=== PATIENT | male | born 1980 ===

== ENCOUNTER 2017-01-22 19:45 | Emergency (ER) | payer SELFPAY ==
[2017-01-22 19:58] VITALS: BP 136/87
--- NOTE | 2017-01-22 20:23 | UC ---
Skin Complaint HPI - HPI Summary HPI Summary: bee sting x 4 days ago on his both ankles , + pain , swelling, itchy skin , no sob , no cough , no wheezing + nausea and vomiting feeling much better for the past 2 days - History of Current Complaint Chief Complaint: UCLowerExtremity Time Seen by Provider: 01/22/17 19:50 Stated Complaint: BEE STING 3 DAYS AGO/ SWELLING Hx Obtained From: Patient Onset/Duration: Sudden Onset, Lasting Days - 4, Still Present Timing: Constant Onset Severity: Moderate Current Severity: Mild Location: Other - bilateral ankles Aggravating: Nothing Alleviating: Nothing Associated Signs & Symptoms: Positive: Nausea, Vomiting, Tenderness. Negative: Numbness, Thirst, Diaphoresis, Weakness, Pallor, Shivering, Fever, Chills, Cough , Wheezing, Syncope, Drainage - Allergy/Home Medications Allergies/Adverse Reactions: Allergies Allergy/AdvReac Type Severity Reaction Status Date / Time Bee Venom Allergy Hives Verified 01/22/17 19:59 Home Medications: Home Medications Cetirizine* [ZyrTEC 10 MG TAB*] 10 mg PO DAILY 01/22/17 [History Confirmed 01/22] Ibuprofen TAB* [Advil TAB*] 200 mg PO Q6H PRN 01/22/17 [History Confirmed ] diPHENhydraMINE PO* [Benadryl PO 25 MG TAB*] 50 mg PO Q4H PRN 01/22/17 [History Confirmed 01/22/17] Review of Systems Constitutional: Negative Skin: Rash Eyes: Negative ENT: Negative Respiratory: Negative Cardiovascular: Negative Gastrointestinal: Negative All Other Systems Reviewed And Are Negative: Yes PMH/Surg Hx/FS Hx/Imm Hx Previously Healthy: Yes - Surgical History Surgical History: None - Family History Known Family History: Negative: Diabetes - Social History Alcohol Use: Weekly Substance Use Type: None Smoking Status (MU): Current Every Day Smoker Type: Cigarettes Amount Used/How Often: 1/2 PPD Length of Time of Smoking/Using Tobacco: 20 YRS Physical Exam Triage Information Reviewed: Yes Appearance: Well-Appearing, No Pain Distress, Well-Nourished Vital Signs: Initial Vital Signs Temp 97 F 01/22/17 19:50 Pulse 102 01/22/17 19:50 Resp 14 01/22/17 19:50 BP 136/87 01/22/17 19:50 Pulse Ox 98 01/22/17 19:50 Vital Signs Reviewed: Yes Eye Exam: Normal Eyes: Positive: Conjunctiva Clear ENT: Positive: Normal ENT inspection, Hearing grossly normal, Pharynx normal Neck: Positive: Supple, Nontender, No Lymphadenopathy Respiratory: Positive: Chest non-tender, Lungs clear, Normal breath sounds Cardiovascular: Positive: RRR, No Murmur, Pulses Normal Abdominal Exam: Normal Skin: Positive: Other - + swelling bilateral ankles , no tenderness, no erythema , Course/Dx - Diagnoses Provider Diagnoses: bee sting Discharge - Discharge Plan Condition: Stable Disposition: HOME Prescriptions: Epinephrine [Epipen 2-Armando] 0.3 mg IM ONCE #1 inj Patient Education Materials: Insect Bite or Sting (ED) Referrals: Aaliyah Nice MD [Primary Care Provider] - If Needed
== END 2017-01-22 20:25 | disposition home or self-care (01) ==
LOC: UCCORT 19:45
DX: T63.441A Toxic effect of venom of bees, accidental (unintentional), initial encounter (principal); L29.9 Pruritus, unspecified; R11.2 Nausea with vomiting, unspecified; Y92.9 Unspecified place or not applicable; F17.210 Nicotine dependence, cigarettes, uncomplicated
CPT/HCPCS: 99202; G0463